=== PATIENT | male | born 1945 | race Caucasian/White ===

== ENCOUNTER → 2016-11-19 | Outpatient (CLI) | payer MEDICARE, OTHER ==
[~2016-11-19] MED LIST: ASPI325T PO; FISHCAP4 PO; MELAPOW2 PO; MULTTAB26 PO; ONDA1TAB16 PO; PERC5TAB12 PO; POTA10TA8 PO; SIMV20TA PO; VALS1TAB64 PO; [UNRECOGNIZED DRUG - CODE] PO; [UNRECOGNIZED DRUG - CODE] PO
[2016-11-19 12:33] LABS: HEMATOCRIT 46.6 % (39.0-51.0); MEAN CELL VOLUME 87.6 FL (80.0-100.0); MEAN CORPUSCULAR HEMOGLOBIN 29.6 PG (27.0-34.0); MEAN CORPUSCULAR HGB CONC 33.7 % (32.0-36.0); PLATELET COUNT 196 TH/MM3 (150-450); RED BLOOD COUNT 5.32 MIL/MM3 (4.50-5.90); REVIEW FLAG FINAL; WHITE BLOOD COUNT 7.4 TH/MM3 (4.0-11.0)
[2016-11-19 12:57] LABS: BICARBONATE 24.9 MEQ/L (21.0-32.0); POTASSIUM 4.5 MEQ/L (3.5-5.1)
--- NOTE | 2016-11-20 15:37 | EKG ---
Date Performed: 11/19/2016 Time Performed: 12:46:13 PTAGE: 70 years EKG: SINUS BRADYCARDIA BORDERLINE ECG PREVIOUS TRACING : 01/11/2016 09.04 Compared to prior tracing no significant change DOCTOR: Monae Mera Interpretating Date/Time 11/20/2016 15:36:39
== END ==
LOC: CLAB 12:05
PROVIDERS: ATTEND Orthopaedic Surgery Sports Medicine
DX: Z01.810 Encounter for preprocedural cardiovascular examination (principal); M75.121 Complete rotator cuff tear or rupture of right shoulder, not specified as traumatic; R00.1 Bradycardia, unspecified
CPT/HCPCS: 36415; 80048; 85027; 93005